=== PATIENT | male | born 1975 | race African-American/Black ===

== ENCOUNTER 2019-06-13 10:57 | Emergency (ER) | payer SELFPAY ==
[~2019-06-13] VITALS: Ht 195.6 cm; Wt 86.3 kg
[2019-06-13 11:29] VITALS: BP 164/101
--- NOTE | 2019-06-13 11:45 | PHYS DOC ---
Past Medical History Past Medical History: No Pertinent History Past Surgical History: No Surgical History Smoking Status: Current Every Day Smoker Alcohol Use: None Adult General Chief Complaint Chief Complaint: LOWER BACK PAIN OR INJURY HPI HPI Patient is a 44 year old male who presents with 2 weeks ago is moving furniture when he pulled a muscle in his bilateral lower back and had sharp pain going down into the buttock of the right side. Patient states he used shock therapy on it and BC powder and pain went away. He states that couple days ago he again was moving furniture when he felt the pain again. 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 Patient rates his pain 9 out of 10. Review of Systems Review of Systems Constitutional: Denies fever or chills [] Eyes: Denies change in visual acuity, redness, or eye pain [] HENT: Denies nasal congestion or sore throat [] Respiratory: Denies cough or shortness of breath [] Cardiovascular: No additional information not addressed in HPI [] GI: Denies abdominal pain, nausea, vomiting, bloody stools or diarrhea [] : Denies dysuria or hematuria [] Musculoskeletal: Denies back pain or joint pain [] Integument: Denies rash or skin lesions [] Neurologic: Denies headache, focal weakness or sensory changes [] Endocrine: Denies polyuria or polydipsia [] All other systems were reviewed and found to be within normal limits, except as documented in this note. Allergies Allergies Allergies Coded Allergies Type Severity Reaction Last Updated Verified No Known Drug Allergies 06/13/19 No Physical Exam Physical Exam Constitutional: Well developed, well nourished, no acute distress, non-toxic appearance. [] HENT: Normocephalic, atraumatic, bilateral external ears normal, oropharynx moist, no oral exudates, nose normal. [] Eyes: PERRLA, EOMI, conjunctiva normal, no discharge. [] Neck: Normal range of motion, no tenderness, supple, no stridor. [] Cardiovascular:Heart rate regular rhythm, no murmur [] Lungs & Thorax: Bilateral breath sounds clear to auscultation [] Abdomen: Bowel sounds normal, soft, no tenderness, no masses, no pulsatile masses. [] Skin: Warm, dry, no erythema, no rash. [] Back: No tenderness, no CVA tenderness. [] Extremities: No tenderness, no cyanosis, no clubbing, ROM intact, no edema. [] Neurologic: Alert and oriented X 3, normal motor function, normal sensory function, no focal deficits noted. [] Psychologic: Affect normal, judgement normal, mood normal. [] Current Patient Data Vital Signs Vital Signs Date Time Temp Pulse Resp B/P (MAP) Pulse Ox O2 Delivery O2 Flow Rate FiO2 06/13/19 11:29 97.0 73 16 164/101 (122) 100 Room Air 97.0 EKG EKG [] Radiology/Procedures Radiology/Procedures [] Course & Med Decision Making Course & Med Decision Making Pertinent Labs and Imaging studies reviewed. (See chart for details) Ambulatory with a steady gait. No focal weaknesses. Denies numbness or tingling. Patient states only "slight" to bilateral lower back with palpation. No focal bony spinal tenderness. Moves all extremities with normal strength and range of motion. Alert and oriented. Speaks in full clear sentences. Vital signs within normal limits. No extra any swelling. Denies any calf tenderness, chest pain, shortness of air, fever, dysuria, numbness or tingling, focal weakness, headache, dizziness, visual changes. Denies radiation of pain into bladder. Nothing make pain worse or better. Patient is medically screened. Denies loss of bowel bladder. No saddle anesthesia. Patient is educated to take ibuprofen and use a heating pad or [id number] lidocaine patches. Patient states he needs a work note. Patient needs follow-up with primary care provider. Patient choose not to pay and left after medical screening. [] Dragon Disclaimer Dragon Disclaimer This electronic medical record was generated, in whole or in part, using a voice recognition dictation system. Departure Departure Impression: Primary Impression: Encounter for medical screening examination Disposition: HOME, SELF-CARE Condition: STABLE Referrals: NO PCP (PCP) Patient Instructions: Medical Screening Exam [facility] Jun 13, 2019 11:45
== END 2019-06-13 12:04 | disposition home or self-care (01) ==
LOC: ER 10:57
DX: M54.5 Low back pain (principal); F17.200 Nicotine dependence, unspecified, uncomplicated
CPT/HCPCS: 99281; 99282

== ENCOUNTER 2019-07-31 09:37 | Emergency (ER) | payer SELFPAY ==
[~2019-07-31] VITALS: Ht 195.6 cm; Wt 90.9 kg
[2019-07-31 10:22] LABS: BASO # 0.1 x10^3/uL (0.0-0.2); BASO % 1 % (0-3); EOS # 0.2 x10^3/uL (0.0-0.7); EOS % 2 % (0-3); HEMATOCRIT 46.8 % (39.0-53.0); HEMOGLOBIN 15.6 g/dL (13.0-17.5); LYMPH # 2.4 x10^3/uL (1.0-4.8); LYMPH % 30 % (24-48); MEAN CORPUSCULAR HEMOGLOBIN 29 pg (25-35); MEAN CORPUSCULAR HGB CONC 33 g/dL (31-37); MEAN CORPUSCULAR VOLUME 87 fL (79-100); MONO # 0.6 x10^3/uL (0.0-1.1); MONO % 8 % (0-9); NEUT # 4.7 x10^3/uL (1.8-7.7); NEUT % 59 % (31-73); PLATELET COUNT 276 x10^3/uL (140-400); RED BLOOD COUNT 5.39 x10^6/uL (4.30-5.70); RED CELL DISTRIBUTION WIDTH 14.4 % (11.5-14.5)
[2019-07-31 10:33] LABS: CALCIUM 9.2 mg/dL (8.5-10.1); CREATININE 0.8 mg/dL (0.7-1.3); GFR 128.3; POTASSIUM 4.3 mmol/L (3.5-5.1)
--- NOTE | 2019-07-31 10:36 | RAD ---
PORTABLE CHEST 1V Clinical History: Cough and chest pain Technique: AP view of the chest was obtained at 07/31/2019 10:14 AM. Comparison: None. Findings: The cardiomediastinal silhouette is normal. The pulmonary vasculature is normal. The lungs and pleural margins are clear. There is bilateral cervical ribs, an incidental finding. Impression: No evidence of an acute cardiopulmonary process. Electronically signed by: Patrick Villarreal III, MD (07/31/2019 10:34 AM) [id number]
[2019-07-31 10:37] LABS: PROTHROMBIN TIME PATIENT 12.3 SEC (11.7-14.0)
[2019-07-31 10:40] LABS: ALBUMIN 4.3 g/dL (3.4-5.0); ALBUMIN/GLOBULIN RATIO 1.4 (1.0-1.7); TOTAL PROTEIN 7.4 g/dL (6.4-8.2)
--- NOTE | 2019-07-31 11:07 | EKG ---
[facility] [address] [place] [address] Test Date: 2019-07-31 Test Time: 09:44:23 Pat Name: CARINA BANKS Department: Room: Gender: M Manager Wind: : 1975 Requested By: CHRISTIANNE CEDENO Order Number: [id number] Reading MD: Mart Vora MD Measurements Intervals [place] Rate: 80 P: 58 WV: 196 QRS: 17 QRSD: 96 T: 42 QT: 364 QTc: 423 Interpretive Statements SINUS RHYTHM Electronically Signed On 07-31-2019 14:39:43 CDT by Mart Vora MD
[2019-07-31 11:11] LABS: INFLUENZA A PATIENT NEGATIVE (NEGATIVE); INFLUENZA B PATIENT NEGATIVE (NEGATIVE)
[2019-07-31 11:12] VITALS: BP 152/102
[2019-07-31] MEDS ORDERED: AZIT250T PO (11:38)
--- NOTE | 2019-07-31 11:39 | PHYS DOC ---
Past Medical History Past Medical History: No Pertinent History Past Surgical History: No Surgical History Smoking Status: Current Every Day Smoker Alcohol Use: None General Adult EDM: Chief Complaint: CHEST PAIN HPI: HPI: Patient is a 44 year old male who presents ER today for evaluation of cough, fever, chest pain for about 4 days. Patient said he will get of went out for [place]. Patient did not know if anybody had tested positive for persaud virus. Patient denies any abdominal pain, no nausea vomiting. Patient has no family history of heart disease, he has no history of diabetes or hypertension. Patient denies any recent travel operation. Patient has no history of blood clot disorder. Review of Systems: Review of Systems: Constitutional: Positive for fever or chills. [] Eyes: Denies change in visual acuity. [] HENT: Denies nasal congestion or sore throat. [] Respiratory: Denies cough or shortness of breath. [] Cardiovascular: Denies chest pain or edema. [] GI: Denies abdominal pain, nausea, vomiting, bloody stools or diarrhea. [] : Denies dysuria. [] Musculoskeletal: Denies back pain or joint pain. [] Integument: Denies rash. [] Neurologic: Denies headache, focal weakness or sensory changes. [] Endocrine: Denies polyuria or polydipsia. [] Lymphatic: Denies swollen glands. [] Psychiatric: Denies depression or anxiety. [] Heart Score: HEART Score for Chest Pain: HEART Score for Chest Pain Response (Comments) Value History Slighlty/Non-Suspicious 0 ECG Normal 0 Age < 45 0 Risk Factors No Risk Factors 0 Troponin < Normal Limit 0 Total 0 Risk Factors: Risk Factors: DM, Current or recent (<one month) smoker, HTN, HLP, family history of CAD, obesity. Risk Scores: Score 0 - 3: 2.5% MACE over next 6 weeks - Discharge Home Score 4 - 6: 20.3% MACE over next 6 weeks - Admit for Clinical Observation Score 7 - 10: 72.7% MACE over next 6 weeks - Early Invasive Strategies Allergies: Allergies: Allergies Coded Allergies Type Severity Reaction Last Updated Verified No Known Drug Allergies 06/13/19 No Physical Exam: PE: Constitutional: Well developed, well nourished, no acute distress, non-toxic appearance. [] HENT: Normocephalic, atraumatic, bilateral external ears normal, oropharynx mois t, no oral exudates, nose normal. [] Eyes: PERRLA, EOMI, conjunctiva normal, no discharge. [] Neck: Normal range of motion, no tenderness, supple, no stridor. [] Cardiovascular:Heart rate regular rhythm, no murmur [] Lungs & Thorax: Bilateral breath sounds clear to auscultation [] Abdomen: Bowel sounds normal, soft, no tenderness, no masses, no pulsatile masses. [] Skin: Warm, dry, no erythema, no rash. [] Back: No tenderness, no CVA tenderness. [] Extremities: No tenderness, no cyanosis, no clubbing, ROM intact, no edema. [] Neurologic: Alert and oriented X 3, normal motor function, normal sensory function, no focal deficits noted. [] Psychologic: Affect normal, judgement normal, mood normal. [] Current Patient Data: Labs: Laboratory Tests Test 07/31/19 09:50 07/31/19 10:25 White Blood Count 8.0 x10^3/uL (4.0-11.0) Red Blood Count 5.39 x10^6/uL (4.30-5.70) Hemoglobin 15.6 g/dL (13.0-17.5) Hematocrit 46.8 % (39.0-53.0) Mean Corpuscular Volume 87 fL (79-100) Mean Corpuscular Hemoglobin 29 pg (25-35) Mean Corpuscular Hemoglobin Concent 33 g/dL (31-37) Red Cell Distribution Width 14.4 % (11.5-14.5) Platelet Count 276 x10^3/uL (140-400) Neutrophils (%) (Auto) 59 % (31-73) Lymphocytes (%) (Auto) 30 % (24-48) Monocytes (%) (Auto) 8 % (0-9) Eosinophils (%) (Auto) 2 % (0-3) Basophils (%) (Auto) 1 % (0-3) Neutrophils # (Auto) 4.7 x10^3/uL (1.8-7.7) Lymphocytes # (Auto) 2.4 x10^3/uL (1.0-4.8) Monocytes # (Auto) 0.6 x10^3/uL (0.0-1.1) Eosinophils # (Auto) 0.2 x10^3/uL (0.0-0.7) Basophils # (Auto) 0.1 x10^3/uL (0.0-0.2) Prothrombin Time 12.3 SEC (11.7-14.0) Prothrombin Time INR 1.0 (0.8-1.1) Activated Partial Thromboplast Time 30 SEC (24-38) Sodium Level 136 mmol/L (136-145) Potassium Level 4.3 mmol/L (3.5-5.1) Chloride Level 99 mmol/L (98-107) Carbon Dioxide Level 29 mmol/L (21-32) Anion Gap 8 (6-14) Blood Urea Nitrogen 10 mg/dL (8-26) Creatinine 0.8 mg/dL (0.7-1.3) Estimated GFR (Cockcroft-Gault) 128.3 BUN/Creatinine Ratio 13 (6-20) Glucose Level 95 mg/dL (70-99) Lactic Acid Level 0.8 mmol/L (0.4-2.0) Calcium Level 9.2 mg/dL (8.5-10.1) Total Bilirubin 1.0 mg/dL (0.2-1.0) Aspartate Amino Transferase (AST) 43 U/L (15-37) H Alanine Aminotransferase (ALT) 69 U/L (16-63) H Alkaline Phosphatase 68 U/L (46-116) Troponin I Quantitative < 0.017 ng/mL (0.000-0.055) Total Protein 7.4 g/dL (6.4-8.2) Albumin 4.3 g/dL (3.4-5.0) Albumin/Globulin Ratio 1.4 (1.0-1.7) Lipase 190 U/L (73-393) Influenza Type A Antigen Negative (NEGATIVE) Influenza Type B Antigen Negative (NEGATIVE) Group A Streptococcus Rapid Negative (NEGATIVE) Laboratory Tests 07/31/19 09:50 Laboratory Tests 07/31/19 09:50 Vital Signs: Vital Signs Date Time Temp Pulse Resp B/P (MAP) Pulse Ox O2 Delivery O2 Flow Rate FiO2 07/31/19 09:52 98.6 84 14 162/102 (122) 100 Room Air 98.6 EKG: EKG: [] Radiology/Procedures: Radiology/Procedures: [][facility] [address] [place] [address] IMAGING REPORT Signed PATIENT: CARINA BANKS ACCOUNT: [id number] : 1975 LOCATION: ER AGE: 44 SEX: M EXAM STATUS: REG ER ORD. PHYSICIAN: CHRISTIANNE CEDENO DO REASON: CHEST PAIN, COUGH PROCEDURE: PORTABLE CHEST 1V PORTABLE CHEST 1V Clinical History: Cough and chest pain Technique: AP view of the chest was obtained at 07/31/2019 10:14 AM. Comparison: None. Findings: The cardiomediastinal silhouette is normal. The pulmonary vasculature is normal. The lungs and pleural margins are clear. There is bilateral cervical ribs, an incidental finding. Impression: No evidence of an acute cardiopulmonary process. Electronically signed by: Ivan Sesay III, MD (07/31/2019 10:34 AM) [id number] DICTATED and SIGNED BY: IVAN SESAY III, MD DATE: 07/31/19 1034 Course & Med Decision Making: Course & Med Decision Making Pertinent Labs and Imaging studies reviewed. (See chart for details) [] Dragon Disclaimer: Dragon Disclaimer: This electronic medical record was generated, in whole or in part, using a voice recognition dictation system. Departure Departure Impression: Primary Impression: Chest pain Additional Impression: Bronchitis Disposition: 01 HOME, SELF-CARE Condition: STABLE Referrals: NO PCP (PCP) FOLLOW UP WITH YOUR PCP THIS WEEK FOR REEVALUATION NEEDED Patient Instructions: Bronchitis, Chest Pain (Nonspecific) Additional Instructions: Thank you for visiting our Emergency Department. We appreciate you trusting us with your care. If any additional problems come up don't hesitate to return to visit us. Please follow up with your primary care provider so they can plan lyndsay tional care if needed and know about the problem that you had. If symptoms worsen come back to the Emergency Department. Any concerning symptoms that start such as chest pain, shortness of air, weakness or numbness on one side of the body, running high fevers or any other concerning symptoms return to the ER. Scripts Azithromycin (ZITHROMAX) 250 Mg Tablet 1 PKG PO UD, #6 TAB Prov: CHRISTIANNE CEDENO DO 07/31/19 CHRISTIANNE CEDENO DO Jul 31, 2019 11:39
== END 2019-07-31 11:50 | disposition home or self-care (01) ==
LOC: ER 09:37
DX: J40 Bronchitis, not specified as acute or chronic (principal); R07.89 Other chest pain; R50.9 Fever, unspecified; R05 Cough; F17.200 Nicotine dependence, unspecified, uncomplicated
CPT/HCPCS: 36415; 71045; 80053; 83605; 83690; 84484; 85025; 85610; 85730; 87070; 87804; 87880; 93005; 99285

== ENCOUNTER 2019-08-07 06:59 | Emergency (ER) | payer OTHER ==
[~2019-08-07] VITALS: Ht 195.6 cm; Wt 100.0 kg
[~2019-08-07 06:59] MED LIST: AZIT250T PO
[2019-08-07] MEDS ORDERED: KETOROLAC 30 MG/ML VIAL. IV ONE (07:45)
[2019-08-07] MEDS ORDERED: ONDANSETRON PF 4 MG/2 ML VIAL. IV ONE (07:45)
[2019-08-07] MEDS ORDERED: IV NORMAL SALINE 1000ML BAG 1,000 ML IV ONE (07:45)
[2019-08-07 07:57] LABS: BASO # 0.1 x10^3/uL (0.0-0.2); BASO % 1 % (0-3); EOS # 0.1 x10^3/uL (0.0-0.7); EOS % 1 % (0-3); HEMATOCRIT 46.8 % (39.0-53.0); HEMOGLOBIN 16.1 g/dL (13.0-17.5); LYMPH # 2.8 x10^3/uL (1.0-4.8); LYMPH % 31 % (24-48); MEAN CORPUSCULAR HEMOGLOBIN 29 pg (25-35); MEAN CORPUSCULAR HGB CONC 34 g/dL (31-37); MEAN CORPUSCULAR VOLUME 85 fL (79-100); MONO % 11 % (0-9); NEUT # 5.2 x10^3/uL (1.8-7.7); NEUT % 56 % (31-73); PLATELET COUNT 299 x10^3/uL (140-400); RED BLOOD COUNT 5.51 x10^6/uL (4.30-5.70); WHITE BLOOD COUNT 9.2 x10^3/uL (4.0-11.0)
[2019-08-07] MEDS ORDERED: IOHEXOL 300 MG/ML 100ML VIAL. IV ONE (08:00)
[2019-08-07 08:04] LABS: CALCIUM 8.8 mg/dL (8.5-10.1); CREATININE 0.9 mg/dL (0.7-1.3); POTASSIUM 3.8 mmol/L (3.5-5.1)
[2019-08-07 08:11] LABS: ALBUMIN 4.2 g/dL (3.4-5.0); ALBUMIN/GLOBULIN RATIO 1.2 (1.0-1.7); TOTAL BILIRUBIN 1.9 mg/dL (0.2-1.0); TOTAL PROTEIN 7.6 g/dL (6.4-8.2)
[2019-08-07] MEDS ORDERED: CONTRAST GIVEN. MC PRN (08:15)
[2019-08-07 08:36] LABS: BILIRUBIN,URINE NEGATIVE (NEG); CLARITY,URINE CLEAR; COLOR,URINE YELLOW; NITRITE,URINE NEGATIVE (NEG); PH,URINE 6.5 (<5.0-8.0); PROTEIN,URINE NEGATIVE (NEG-TRACE)
[2019-08-07 08:47] LABS: BACTERIA,URINE 0 /HPF (0-FEW); RBC,URINE 0 /HPF (0-2); SQUAMOUS EPITHELIAL CELL,UR OCC /LPF; WBC,URINE 0 /HPF (0-4)
--- NOTE | 2019-08-07 09:16 | RAD ---
EXAM: CT ABDOMEN/PELVIS WITH CONTRAST. HISTORY: Abdominal pain. Nausea/vomiting/diarrhea. TECHNIQUE: Computed tomography of the abdomen and pelvis was performed after the intravenous administration of iodinated contrast. One or more of the following individualized dose reduction techniques were utilized for this examination: 1. Automated exposure control. 2. Adjustment of the mA and/or kV according to patient size. 3. Use of iterative reconstruction technique. COMPARISON: None. FINDINGS: Lung windows through the visualized portions of the bases reveal mild atelectasis. Bone windows reveal no suspicious lesions. A mass medial and posterior to the gastric cardia measures 5.6 x 4.8 cm. It measures 38 Hounsfield units in attenuation, but a cystic lesion is favored. The posterior aspect of the cyst extends between slips of the diaphragm. It exerts mild mass effect on the cardiac and does not appear to arise from the stomach. The left adrenal gland appears separate. The liver, gallbladder and kidneys are unremarkable. Pancreas divisum is incidentally noted. The pancreatic duct is at the upper limits of normal caliber. No pancreatic parenchymal lesions are seen. There are calcified granulomas in the spleen. There are no pathologically enlarged lymph nodes. The appendix is above the limits of normal caliber at 8 mm and demonstrates mild wall thickening and trace surrounding inflammation. The colon is decompressed but also appears to demonstrate at least mild diffuse wall thickening. There is no small bowel obstruction. IMPRESSION: 1. The colon is decompressed but demonstrates mild diffuse wall thickening suggesting colitis. The appendix also appears mildly dilated and inflamed. Correlate clinically to differentiate secondary inflammation of the appendix in the setting of colitis from early acute appendicitis. 2. 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 MRI of the abdomen with and without contrast could confirm that this is a cystic lesion without a solid component and guide further management. These findings were called to Dr. Resendiz by Faizan Rice on 08/07/2019 at 9:03 AM. Electronically signed by: Vijay Rice MD (08/07/2019 9:14 AM) [id number]
[2019-08-07 09:21] VITALS: BP 165/109
[2019-08-07] MEDS ORDERED: ONDA4TAB7 PO (09:59)
[2019-08-07] MEDS ORDERED: CIPR500T94 PO (09:59)
[2019-08-07] MEDS ORDERED: PRED20TA PO (09:59)
[2019-08-07] MEDS ORDERED: DILT180C2 PO (09:59)
--- NOTE | 2019-08-07 09:59 | PHYS DOC ---
Past Medical History Past Medical History: Hypertension Past Surgical History: No Surgical History Smoking Status: Never Smoker Alcohol Use: None General Adult EDM: Chief Complaint: ABDOMINAL PAIN HPI: HPI: Patient is a 44-year-old male with a history of hypertension who presents with a 2-day history of abdominal pain. He states the pain initially started in his lower abdomen moved to his upper abdomen and now is in the right upper quadrant/epigastric area. He has had some nausea and vomiting state he cannot hold anything down. He denies any fever chills or sweats. He denies any melena or hematochezia. He has not had trouble with his abdomen in the past. He also states that he is had problems with his blood pressure for quite some time. He states he has a strong family history of blood pressure related illnesses. He has not taken any medication for his blood pressure. [] Review of Systems: Review of Systems: Constitutional: Denies fever or chills. [] Eyes: Denies change in visual acuity. [] HENT: Denies nasal congestion or sore throat. [] Respiratory: Denies cough or shortness of breath. [] Cardiovascular: Denies chest pain or edema. [] GI: Per HPI. [] : Denies dysuria. [] Musculoskeletal: Denies back pain or joint pain. [] Integument: Denies rash. [] Neurologic: Denies headache, focal weakness or sensory changes. [] Endocrine: Denies polyuria or polydipsia. [] Lymphatic: Denies swollen glands. [] Psychiatric: Denies depression or anxiety. [] Heart Score: Risk Factors: Risk Factors: DM, Current or recent (<one month) smoker, HTN, HLP, family history of CAD, obesity. Risk Scores: Score 0 - 3: 2.5% MACE over next 6 weeks - Discharge Home Score 4 - 6: 20.3% MACE over next 6 weeks - Admit for Clinical Observation Score 7 - 10: 72.7% MACE over next 6 weeks - Early Invasive Strategies Current Medications: Current Medications Medications (Trade) Dose Ordered Sig/Dustin Start Time Stop Time Status Last Admin Dose Admin Info (CONTRAST GIVEN -- Rx MONITORING) 1 each PRN DAILY PRN 08/07/19 08:15 08/09/19 08:14 Iohexol (Omnipaque 300 Mg/ml) 75 ml 1X ONCE 08/07/19 08:00 08/07/19 08:02 DC 08/07/19 08:15 75 ML Ketorolac Tromethamine (Toradol 30mg Vial) 30 mg 1X ONCE 08/07/19 07:45 08/07/19 07:51 DC 08/07/19 08:00 30 MG Ondansetron HCl (Zofran) 4 mg 1X ONCE 08/07/19 07:45 08/07/19 07:51 DC 08/07/19 07:57 4 MG Sodium Chloride 1,000 ml @ 1,000 mls/hr 1X ONCE 08/07/19 07:45 08/07/19 08:44 DC 08/07/19 08:01 1,000 MLS/HR Allergies: Allergies: Allergies Coded Allergies Type Severity Reaction Last Updated Verified No Known Drug Allergies 06/13/19 No Physical Exam: PE: Constitutional: Well developed, well nourished, mild distress, non-toxic appearance. [] HENT: Normocephalic, atraumatic, bilateral external ears normal, oropharynx moist, no oral exudates, nose normal. [] Eyes: PERRLA, EOMI, conjunctiva normal, no discharge. [] Neck: Normal range of motion, no tenderness, supple, no stridor. [] Cardiovascular:Heart rate regular rhythm, no murmur [] Lungs & Thorax: Bilateral breath sounds clear to auscultation [] Abdomen: He has some mild epigastric/right upper quadrant tenderness to palp negative Ashton sign he has absolutely no tenderness guarding or rebound in the right lower quadrant [] Skin: Warm, dry, no erythema, no rash. [] Back: No tenderness, no CVA tenderness. [] Extremities: No tenderness, no cyanosis, no clubbing, ROM intact, no edema. [] Neurologic: Alert and oriented X 3, normal motor function, normal sensory function, no focal deficits noted. [] Psychologic: Anxious [] Current Patient Data: Labs: Laboratory Tests Test 08/07/19 07:29 08/07/19 08:20 White Blood Count 9.2 x10^3/uL (4.0-11.0) Red Blood Count 5.51 x10^6/uL (4.30-5.70) Hemoglobin 16.1 g/dL (13.0-17.5) Hematocrit 46.8 % (39.0-53.0) Mean Corpuscular Volume 85 fL (79-100) Mean Corpuscular Hemoglobin 29 pg (25-35) Mean Corpuscular Hemoglobin Concent 34 g/dL (31-37) Red Cell Distribution Width 14.0 % (11.5-14.5) Platelet Count 299 x10^3/uL (140-400) Neutrophils (%) (Auto) 56 % (31-73) Lymphocytes (%) (Auto) 31 % (24-48) Monocytes (%) (Auto) 11 % (0-9) H Eosinophils (%) (Auto) 1 % (0-3) Basophils (%) (Auto) 1 % (0-3) Neutrophils # (Auto) 5.2 x10^3/uL (1.8-7.7) Lymphocytes # (Auto) 2.8 x10^3/uL (1.0-4.8) Monocytes # (Auto) 1.0 x10^3/uL (0.0-1.1) Eosinophils # (Auto) 0.1 x10^3/uL (0.0-0.7) Basophils # (Auto) 0.1 x10^3/uL (0.0-0.2) Sodium Level 138 mmol/L (136-145) Potassium Level 3.8 mmol/L (3.5-5.1) Chloride Level 98 mmol/L (98-107) Carbon Dioxide Level 29 mmol/L (21-32) Anion Gap 11 (6-14) Blood Urea Nitrogen 11 mg/dL (8-26) Creatinine 0.9 mg/dL (0.7-1.3) Estimated GFR (Cockcroft-Gault) 112.0 BUN/Creatinine Ratio 12 (6-20) Glucose Level 89 mg/dL (70-99) Calcium Level 8.8 mg/dL (8.5-10.1) Total Bilirubin 1.9 mg/dL (0.2-1.0) H Aspartate Amino Transferase (AST) 34 U/L (15-37) Alanine Aminotransferase (ALT) 40 U/L (16-63) Alkaline Phosphatase 81 U/L (46-116) Troponin I Quantitative < 0.017 ng/mL (0.000-0.055) Total Protein 7.6 g/dL (6.4-8.2) Albumin 4.2 g/dL (3.4-5.0) Albumin/Globulin Ratio 1.2 (1.0-1.7) Lipase 188 U/L (73-393) Urine Collection Type Void Urine Color Yellow Urine Clarity Clear Urine pH 6.5 (<5.0-8.0) Urine Specific [place] 1.020 (1.000-1.030) Urine Protein Negative mg/dL (NEG-TRACE) Urine Glucose (UA) Negative mg/dL (NEG) Urine Ketones (Stick) Trace mg/dL (NEG) Urine Blood Negative (NEG) Urine Nitrite Negative (NEG) Urine Bilirubin Negative (NEG) Urine Urobilinogen Dipstick 1.0 mg/dL (0.2 mg/dL) Urine Leukocyte Esterase Negative (NEG) Urine RBC 0 /HPF (0-2) Urine WBC 0 /HPF (0-4) Urine Squamous Epithelial Cells Occ /LPF Urine Bacteria 0 /HPF (0-FEW) Laboratory Tests 08/07/19 07:29 Laboratory Tests 08/07/19 07:29 Vital Signs: Vital Signs Date Time Temp Pulse Resp B/P (MAP) Pulse Ox O2 Delivery O2 Flow Rate FiO2 08/07/19 09:21 80 18 165/109 (127) 100 Nasal Cannula 08/07/19 07:22 98.1 98.1 EKG: EKG: [] Radiology/Procedures: Radiology/Procedures: []PROCEDURE: CT ABD PELV W/ IV CONTRST ONLY EXAM: CT ABDOMEN/PELVIS WITH CONTRAST. HISTORY: Abdominal pain. Nausea/vomiting/diarrhea. TECHNIQUE: Computed tomography of the abdomen and pelvis was performed after the intravenous administration of iodinated contrast. One or more of the following individualized dose reduction techniques were utilized for this examination: 1. Automated exposure control. 2. Adjustment of the mA and/or kV according to patient size. 3. Use of iterative reconstruction technique. COMPARISON: None. FINDINGS: Lung windows through the visualized portions of the bases reveal mild atelectasis. Bone windows reveal no suspicious lesions. A mass medial and posterior to the gastric cardia measures 5.6 x 4.8 cm. It measures 38 Hounsfield units in attenuation, but a cystic lesion is favored. The posterior aspect of the cyst extends between slips of the diaphragm. It exerts mild mass effect on the cardiac and does not appear to arise from the stomach. The left adrenal gland appears separate. The liver, gallbladder and kidneys are unremarkable. Pancreas divisum is incidentally noted. The pancreatic duct is at the upper limits of normal caliber. No pancreatic parenchymal lesions are seen. There are calcified granulomas in the spleen. There are no pathologically enlarged lymph nodes. The appendix is above the limits of normal caliber at 8 mm and demonstrates mild wall thickening and trace surrounding inflammation. The colon is decompressed but also appears to demonstrate at least mild diffuse wall thickening. There is no small bowel obstruction. IMPRESSION: 1. The colon is decompressed but demonstrates mild diffuse wall thickening suggesting colitis. The appendix also appears mildly dilated and inflamed. Correlate clinically to differentiate secondary inflammation of the appendix in the setting of colitis from early acute appendicitis. 2. 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 MRI of the abdomen with and without contrast could confirm that this is a cystic lesion without a solid component and guide further management. These findings were called to Dr. Resendiz by Faizan Rice on 08/07/2019 at 9:03 AM. Course & Med Decision Making: Course & Med Decision Making Pertinent Labs and Imaging studies reviewed. (See chart for details) [ED course: Evaluation reveals a 44-year-old male with abdominal discomfort. CT scan showed diffuse colitis. I did discuss the CT scan with the radiologist and after seeing the results went back and reexamined the patient's abdomen he still has no right lower quadrant tenderness at all. I did discuss the findings with the patient. The patient states he feels much much better has no more pain and the nausea has resolved. I will go ahead and prescribe the patient Zofran, Cipro and short course of prednisone to help with his symptoms. I recommended close follow-up with a family practitioner. I will also start the patient on some blood pressure medicine.] [place] Disclaimer: [place]ys Disclaimer: This electronic medical record was generated, in whole or in part, using a voice recognition dictation system. Departure Departure Impression: Primary Impression: Colitis Additional Impressions: Nausea & vomiting Qualified Codes: R11.2 - Nausea with vomiting, unspecified Hypertension Qualified Codes: I10 - Essential (primary) hypertension Disposition: HOME, SELF-CARE Condition: IMPROVED Referrals: NO PCP (PCP) Patient Instructions: Colitis, Hypertension, Nausea and Vomiting Scripts Diltiazem Hcl (CARDIZEM CD) 180 Mg Cap.er.24h 1 CAP PO DAILY, #30 CAP 5 Refills Prov: MIKAYLA SUMMERS DO 08/07/19 Ondansetron Hcl (ZOFRAN) 4 Mg Tablet 1 TAB PO Q8HRS PRN for NAUSEA, #20 TAB Prov: MIKAYLA SUMMERS DO 08/07/19 Prednisone (PREDNISONE) 20 Mg Tablet 2 TAB PO DAILY PRN for COUGH, #14 TAB Prov: MIKAYLA SUMMERS DO 08/07/19 Ciprofloxacin Hcl (CIPRO) 500 Mg Tablet 1 TAB PO BID PRN for Colitis, #14 TAB Prov: MIKAYLA SUMMERS DO 08/07/19 MIKAYLA SUMMERS DO Aug 07, 2019 09:59
--- NOTE | 2019-08-07 11:08 | EKG ---
[facility] [address] [place] [id number] Test Date: 2019-08-07 Test Time: 08:02:19 Pat Name: CARINA BANKS Department: Room: Gender: M [employer] Machine Operator: : [id number] Requested By: MIKAYLA SUMMERS Order Number: [id number] Reading MD: Liam Song Measurements Intervals [place] Rate: 81 P: 46 IA: 174 QRS: 10 QRSD: 92 T: 47 QT: 368 QTc: 433 Interpretive Statements SINUS RHYTHM INCOMPLETE RIGHT BUNDLE BRANCH BLOCK NONSPECIFIC ST-T WAVE CHANGES. Electronically Signed On 08-07-2019 11:25:14 CDT by Liam Song
== END 2019-08-07 10:04 | disposition home or self-care (01) ==
LOC: ER 06:59
DX: K52.9 Noninfective gastroenteritis and colitis, unspecified (principal); R11.2 Nausea with vomiting, unspecified; R10.11 Right upper quadrant pain; I10 Essential (primary) hypertension
CPT/HCPCS: 36415; 74177; 80053; 81001; 83690; 84484; 85025; 93005; 96361; 96374; 96375; 99285; J1885; J2405; J7030; Q9967